=== PATIENT | female | born 1990 | race Caucasian/White ===

== ENCOUNTER 2018-01-18 06:38 | Emergency (ER) | payer OTHER ==
[2018-01-18 07:06] LABS: BILIRUBIN,URINE NEGATIVE (NEGATIVE); GLUCOSE, URINE (UA) NEGATIVE (NEGATIVE); KETONES,URINE (UA) NEGATIVE (NEGATIVE); LEUKOCYTE ESTERASE, URINE TRACE (NEGATIVE); NITRITE,URINE NEGATIVE (NEGATIVE); OCCULT BLOOD,URINE LARGE (NEGATIVE); PH,URINE 7.5 PH (5.0-7.5); PROTEIN,URINE NEGATIVE (NEGATIVE); UROBILINOGEN,URINE 0.2 (NORMAL) E.U./dL (NORMAL)
--- NOTE | 2018-01-18 07:11 | ED Physician Documentation ---
History of Present Illness - Stated complaint Stated Complaint: LOWER ABD PX - Chief complaint Chief Complaint: Abd Pain - History obtained from History obtained from: Patient - History of Present Illness Timing: Today Pain level max: 10 Pain level now: 10 - Additonal information Additional information: 27 yo F , seen at [facility] on 12/23/17, dx with a miscarriage. 12/30, no change in fetus size, but decreased HCG. They are expecting the miscarriage to pass. Uses 2-3 pads per day. States increased pain today. +nausea. States has not taken anything for pain. Nothing makes it better or worse. Review of Systems Constitutional: denies: Fever, Chills Ears: denies: Ear pain Nose: denies: Rhinorrhea / runny nose, Congestion GI: denies: Nausea, Vomiting : denies: Dysuria, Frequency, Hesitancy Skin: denies: Rash Musculoskeletal: denies: Neck pain, Back pain Neurologic: denies: Headache PD PAST MEDICAL HISTORY - Past Medical History Past Medical History: No - Past Surgical History Past Surgical History: No - Present Medications Home Medications: Ambulatory Orders Medication Instructions Recorded Confirmed Hydrocodone/Acetaminophen 1 - 2 each PO Q6H PRN #14 tablet 01/18/18 [Hydrocodon-Acetaminophen 5-325] - Allergies Allergies/Adverse Reactions: Allergies Allergy/AdvReac Type Severity Reaction Status Date / Time No Known Drug Allergies Allergy Verified 01/18/18 06:47 - Social History Does the pt smoke?: No Smoking Status: Never smoker Does the pt drink ETOH?: No Does the pt have substance abuse?: No - Immunizations Immunizations are current?: Yes - POLST Patient has POLST: No PD ED PE NORMAL - Vitals Vital signs reviewed: Yes - General General: Alert and oriented X 3, No acute distress - HEENT HEENT: Moist mucous membranes - Neck Neck: Supple, no meningeal sign - Cardiac Cardiac: RRR, Strong equal pulses - Respiratory Respiratory: No respiratory distress, Clear bilaterally - Abdomen Abdomen: Soft, Non tender, Non distended - Derm Derm: Warm and dry, No rash - Extremities Extremities: No edema - Neuro Neuro: Alert and oriented X 3 - Psych Psych: Normal mood, Normal affect Results - Vitals Vitals: Vital Signs - 24 hr 01/18/18 01/18/18 06:44 08:31 Temperature 36.6 C Heart Rate 65 58 L Respiratory 20 16 Rate Blood Pressure 126/73 126/64 O2 Saturation 100 97 Oxygen O2 Source Room air - Labs Labs: Laboratory Tests 01/18/18 01/18/18 01/18/18 07:00 07:10 07:10 WBC 7.8 RBC 4.35 Hgb 13.7 Hct 40.3 MCV 92.7 MCH 31.4 H MCHC 33.9 RDW 13.3 Plt Count 213 MPV 7.4 L Neut # 4.8 Lymph # 1.9 [place] # 0.7 Eos # 0.2 Baso # 0.1 Absolute Nucleated RBC 0.00 Nucleated RBC % 0.1 HCG, Quant 1886.00 Urine Color YELLOW Urine Clarity HAZY Urine pH 7.5 Ur Specific [place] 1.010 Urine Protein NEGATIVE Urine Glucose (UA) NEGATIVE Urine Ketones NEGATIVE Urine Occult Blood LARGE H Urine Nitrite NEGATIVE Urine Bilirubin NEGATIVE Urine Urobilinogen 0.2 (NORMAL) Ur Leukocyte Esterase TRACE H Urine RBC 0-5 Urine WBC 6-10 H Ur Squamous Epith Cells RARE Squamous Urine Bacteria Rare Ur Microscopic Review INDICATED Urine Culture Comments INDICATED PD MEDICAL DECISION MAKING - ED course Complexity details: reviewed results, re-evaluated patient, considered differential, d/w patient, d/w family ED course: Patient is a 27-year-old female who presents to the emergency department with a continued miscarriage. Her hCG is decreasing appropriately. I discussed the case with Dr. Hernandez, gynecology at the [facility] who will follow the patient up in clinic. Pain is well controlled here. She is not anemic. No fevers. Patient counseled regarding signs and symptoms for which I believe and urgent re-evaluation would be necessary. Patient with good understanding of and agreement to plan and is comfortable going home at this time This document was made in part using voice recognition software. While efforts are made to proofread this document, sound alike and grammatical errors may occur. Departure - Departure Disposition: 01 Home, Self Care Clinical Impression: Miscarriage Condition: Good Instructions: ED Miscarriage Incom Follow-Up: NEYDA Dai [Provider Group] ARIELLA CASTANON [Physician No Access] - Within 1 week Prescriptions: Hydrocodone/Acetaminophen [Hydrocodon-Acetaminophen 5-325] 1 - 2 each PO Q6H PRN #14 tablet PRN Reason: pain Comments: Return if you worsen. You will likely start to have passage of tissue soon as the cramping is increasing. Follow-up with your OB for further care. Do not drink alcohol or drive while on narcotic pain medicine. Note that many narcotic pain relievers also contain tylenol/acetaminophen. Please ensure that your total dose of acetaminophen from all sources does not exceed 3 grams (3000mg) per day. You may constipated on this medication, take a stool softener such as "Colace" twice a day while you are on it. Also recommend a ofpm-aky-efijuws laxative such as senna or MiraLAX any day that you do not have a bowel movement. If you received narcotic pain medication in the emergency department, do not drive or operate machinery for the next 24 hours. Discharge Date/Time: 01/18/18 08:55
[2018-01-18 07:18] LABS: BASOPHILS # (AUTO) 0.1 10^3/uL (0.0-0.1); BASOPHILS % (AUTO) 1.4 %; EOSINOPHILS # (AUTO) 0.2 10^3/uL (0.0-0.7); EOSINOPHILS % (AUTO) 2.9 %; HGB - HEMOGLOBIN 13.7 g/dL (12.0-16.0); LYMPHOCYTES # (AUTO) 1.9 10^3/uL (1.5-3.5); LYMPHOCYTES % (AUTO) 24.7 %; MEAN CORPUSCULAR HEMOGLOBIN 31.4 pg (27.0-31.0); MEAN CORPUSCULAR HGB CONC 33.9 g/dL (32.0-36.0); MEAN CORPUSCULAR VOLUME 92.7 fL (81.0-99.0); MEAN PLATELET VOLUME 7.4 fL (7.9-10.8); MONOCYTES # (AUTO) 0.7 10^3/uL (0.0-1.0); MONOCYTES % (AUTO) 9.6 %; NEUTROPHILS # (AUTO) 4.8 10^3/uL (1.5-6.6); NEUTROPHILS % (AUTO) 61.4 %; PLT - PLATELET COUNT 213 10^3/uL (130-450); RED BLOOD COUNT 4.35 10^6/uL (4.20-5.40); RED CELL DISTRIBUTION WIDTH 13.3 % (12.0-15.0); WHITE BLOOD COUNT 7.8 x10^3/uL (4.8-10.8)
[2018-01-18 07:18] LABS: CLARITY,URINE HAZY (CLEAR)
[2018-01-18 07:23] LABS: BACTERIA,URINE Rare /HPF (None Seen); RBC,URINE 0-5 /HPF (0-5); SQUAMOUS EPITHELIAL CELL,UR RARE Squamous (<= Few)
[2018-01-18] MEDS ORDERED: HYDROcod/ACETAM 5/325 MG TABLET PO STA (07:24)
[2018-01-18 08:32] VITALS: BP 126/64
== END 2018-01-18 08:55 | disposition home or self-care (01) ==
LOC: ED 06:38
DX: O03.9 Complete or unspecified spontaneous abortion without complication (principal)
CPT/HCPCS: 36415; 81001; 84702; 85025; 87086; 99283; 99284; A9270; 81003

== ENCOUNTER 2018-01-19 18:17 | Emergency (ER) | payer OTHER ==
--- NOTE | 2018-01-19 18:32 | ED Physician Documentation ---
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 She has been managing and expected miscarriage for the past month. Decreasing hCGs. Tonight increased pain and bleeding. Review of Systems Ten Systems: 10 systems reviewed and negative Constitutional: denies: Fever, Chills Ears: denies: Ear pain Nose: denies: Rhinorrhea / runny nose, Congestion Throat: denies: Sore throat Cardiac: denies: Chest pain / pressure Respiratory: denies: Cough GI: denies: Vomiting, Diarrhea : denies: Dysuria Skin: denies: Rash Musculoskeletal: denies: Neck pain, Back pain Neurologic: denies: Headache PD PAST MEDICAL HISTORY - Past Medical History Past Medical History: No - Past Surgical History Past Surgical History: No - Present Medications Home Medications: Ambulatory Orders Medication Instructions Recorded Confirmed Hydrocodone/Acetaminophen 1 - 2 each PO Q6H PRN #14 tablet 01/18/18 [Hydrocodon-Acetaminophen 5-325] Cephalexin [Keflex] 500 mg PO Q6H #28 capsule 01/19/18 - Allergies Allergies/Adverse Reactions: Allergies Allergy/AdvReac Type Severity Reaction Status Date / Time No Known Drug Allergies Allergy Verified 01/18/18 06:47 - Living Situation Living Situation: reports: With family Living Arrangement: reports: At home - Social History Does the pt smoke?: No Smoking Status: Never smoker Does the pt drink ETOH?: No Does the pt have substance abuse?: No - Immunizations Immunizations are current?: Yes - POLST Patient has POLST: No PD ED PE NORMAL - Vitals Vital signs reviewed: Yes - General General: Alert and oriented X 3, Other (Appears uncomfortable) - HEENT HEENT: PERRL, Moist mucous membranes, Pharynx benign - Neck Neck: Supple, no meningeal sign - Cardiac Cardiac: RRR, Strong equal pulses - Respiratory Respiratory: No respiratory distress, Clear bilaterally - Abdomen Abdomen: Soft, Other (Tender to palpation suprapubic) - Female Female : Clinical Laboratory Director present (Cari DILL, Nina TORRES), Other (Large amount of clots throughout the vaginal. These were evacuated. Tolerated well. The cervical loss is open and clots were also removed from the cervical loss. Minimal bleeding after removal of all the clots. Patient tolerated well.) - Derm Derm: Warm and dry, No rash - Extremities Extremities: No edema - Neuro Neuro: Alert and oriented X 3 Results - Vitals Vitals: Vital Signs - 24 hr 01/19/18 01/19/18 18:20 21:44 Temperature 36.3 C L 36.4 C L Heart Rate 65 62 Respiratory 18 16 Rate Blood Pressure 116/80 134/64 H O2 Saturation 100 100 Oxygen O2 Source Room air - Labs Labs: Laboratory Tests 01/19/18 01/19/18 01/19/18 18:45 18:45 18:45 WBC 17.6 H RBC 4.26 Hgb 13.3 Hct 39.2 MCV 92.2 MCH 31.2 H MCHC 33.8 RDW 13.0 Plt Count 218 MPV 7.6 L Neut # 15.6 H Lymph # 1.1 L [place] # 0.8 Eos # 0.0 Baso # 0.1 Absolute Nucleated RBC 0.00 Nucleated RBC % 0.0 PT 11.8 INR 1.0 APTT 26.6 Sodium 135 Potassium 3.4 L Chloride 104 Carbon Dioxide 16 L Anion Gap 15.0 H BUN 10 Creatinine 0.7 Estimated GFR (MDRD) 100 Glucose 151 H Calcium 9.0 Total Bilirubin 0.4 AST 30 ALT 25 Alkaline Phosphatase 63 Total Protein 7.5 Albumin 4.2 Globulin 3.3 Albumin/Globulin Ratio 1.3 Lipase 17 L Blood Type Antibody Screen 01/19/18 18:50 WBC RBC Hgb Hct MCV MCH MCHC RDW Plt Count MPV Neut # Lymph # [place] # Eos # Baso # Absolute Nucleated RBC Nucleated RBC % PT INR APTT Sodium Potassium Chloride Carbon Dioxide Anion Gap BUN Creatinine Estimated GFR (MDRD) Glucose Calcium Total Bilirubin AST ALT Alkaline Phosphatase Total Protein Albumin Globulin Albumin/Globulin Ratio Lipase Blood Type O POSITIVE Antibody Screen NEGATIVE - Rads (name of study) Pelvic ultrasound Radiology: Prelim report reviewed, EMP read contemporaneously, See rad report ( 3.1 x 1.9 x 2.3 cm heterogeneous predominantly hypoechoic lesion seen in the endometrial cavity lower uterine segment without increased vascularity may represent blood clot. Retained products of conception is less likely in the absence of internal vascularity within this lesion. Correlate with direct examination should be considered. Fundal endometrium appears unremarkable on transabdominal evaluation without increased vascularity. Bilateral ovaries are also normal) PD MEDICAL DECISION MAKING - ED course Complexity details: reviewed results, re-evaluated patient, considered differential, d/w patient, d/w family, d/w medical sales consultant ED course: Patient is a 27-year-old female who appears to have had a miscarriage tonight. Large amount of clots were removed from the cervical os as well as the vagina. She tolerated this well. Bleeding nearly resolved. Hemoglobin is normal. Vitals are stable. Pain well controlled. She did have an elevated white blood cell count, and will cover with antibiotics in case she is developing an early infection here. I discussed the case with Dr. Roberto, gynecology on-call who recommends that she follow-up at the [facility] as scheduled. Patient counseled regarding signs and symptoms for which I believe and urgent re-evaluation would be necessary. Patient with good understanding of and agreement to plan and is comfortable going home at this time This document was made in part using voice recognition software. While efforts are made to proofread this document, sound alike and grammatical errors may occur. Departure - Departure Disposition: 01 Home, Self Care Clinical Impression: Miscarriage Condition: Good Instructions: ED Miscarriage Completed Follow-Up: Noni Hernandez MD [Provider Admit Priv/Credential] - Within 3 Days Prescriptions: Cephalexin [Keflex] 500 mg PO Q6H #28 capsule Comments: Return if you worsen. Take all antibiotics until gone. Discharge Date/Time: 01/19/18 22:02
[2018-01-19] MEDS ORDERED: ELECTROLYTE-A SOLUTION 1,000 ML IV ONE (18:51)
[2018-01-19] MEDS ORDERED: MORPHINE 2 MG/ML CARPUJECT IVP STA (18:51)
[2018-01-19] MEDS ORDERED: ELECTROLYTE-A SOLUTION 1,000 ML IV SCH (19:00)
[2018-01-19 19:04] LABS: BASOPHILS # (AUTO) 0.1 10^3/uL (0.0-0.1); BASOPHILS % (AUTO) 0.4 %; EOSINOPHILS % (AUTO) 0.2 %; HGB - HEMOGLOBIN 13.3 g/dL (12.0-16.0); LYMPHOCYTES # (AUTO) 1.1 10^3/uL (1.5-3.5); LYMPHOCYTES % (AUTO) 6.4 %; MEAN CORPUSCULAR HEMOGLOBIN 31.2 pg (27.0-31.0); MEAN CORPUSCULAR HGB CONC 33.8 g/dL (32.0-36.0); MEAN CORPUSCULAR VOLUME 92.2 fL (81.0-99.0); MEAN PLATELET VOLUME 7.6 fL (7.9-10.8); MONOCYTES # (AUTO) 0.8 10^3/uL (0.0-1.0); MONOCYTES % (AUTO) 4.5 %; NEUTROPHILS # (AUTO) 15.6 10^3/uL (1.5-6.6); NEUTROPHILS % (AUTO) 88.5 %; PLT - PLATELET COUNT 218 10^3/uL (130-450); RED BLOOD COUNT 4.26 10^6/uL (4.20-5.40); WHITE BLOOD COUNT 17.6 x10^3/uL (4.8-10.8)
[2018-01-19 19:12] LABS: ALBUMIN 4.2 g/dL (3.2-5.5); ALBUMIN/GLOBULIN RATIO 1.3 (1.0-2.2); BILIRUBIN,TOTAL 0.4 mg/dL (0.2-1.0); CREATININE 0.7 mg/dL (0.4-1.0); TOTAL PROTEIN 7.5 g/dL (6.7-8.2)
[2018-01-19 19:14] LABS: PT - PROTHROMBIN TIME 11.8 secs (9.9-12.6)
[2018-01-19] MEDS ORDERED: SODIUM CHLORIDE 0.9% 1,000 ML IV ONE (20:23)
--- NOTE | 2018-01-19 21:36 | Ultrasound Report ---
EXAM: PELVIC ULTRASOUND EXAM DATE: 01/19/2018 09:26 PM. CLINICAL HISTORY: Vaginal bleeding, miscarriage. COMPARISON: None. TECHNIQUE: Realtime transabdominal pelvic scan performed to identify the uterus and adnexa and as an overview of other pelvic structures, with static image documentation. FINDINGS: Uterus: 11 x 4.5 x 5.2 cm, volume 134 cc. Anteverted position. Normal overall size and echotexture. Masses: None. Endometrium: 12 mm. Fundal endometrium appears unremarkable. There is a heterogeneous, predominantly hypoechoic lesion within the endometrial cavity in the lower uterine segment measuring approximately 3.1 x 1.9 x 2.3 cm without evidence for internal vascularity. Cervix: Appears closed. Right Ovary: 2.5 x 2 x 2.1 cm, volume 5.6 cc. Normal echotexture and blood flow. Left Ovary: 3 x 1.7 x 2 cm, volume 5.4 cc. Normal echotexture and blood flow. Free Fluid: None. Other: None. IMPRESSION: 1. 3.1 x 1.9 x 2.3 cm heterogeneous, predominantly hypoechoic lesion seen in the endometrial cavity l ower uterine segment without increased vascularity may represent blood clot. Retained products of con ception is less likely in the absence of internal vascularity within this lesion. Correlation with di rect examination should be considered given location. 2. Fundal endometrium appears unremarkable on transabdominal evaluation without increased vascularity . 3. Bilateral ovaries also appear normal. [facility] Referring Provider Line: [phone] SITE ID: [id number]
[2018-01-19] MEDS ORDERED: ceFAZolin 1 GM VIAL IVP STA (21:41)
[2018-01-19 21:45] VITALS: BP 134/64
== END 2018-01-19 22:02 | disposition home or self-care (01) ==
LOC: ED 18:17
DX: O03.9 Complete or unspecified spontaneous abortion without complication (principal)
CPT/HCPCS: 36415; 76857; 80053; 83690; 85025; 85610; 85730; 86850; 86900; 86901; 96361; 96365; 96375; 99283; 99285